=== PATIENT | female | born 2000 | race American Indian/Alaskan Native ===

== ENCOUNTER 2022-12-12 09:40 | Emergency (ER) | payer MEDICAID, SELFPAY ==
[2022-12-12 09:45] VITALS: BP 126/85; PULSE 53; RESP 17; TEMP 36.6; O2SAT 100
--- NOTE | 2022-12-12 09:59 | DI.RAD.S_ITS ---
PROCEDURE: XR CHEST 1V INDICATIONS: chest pain TECHNIQUE: One view of the chest was acquired. COMPARISON: None. FINDINGS: Surgical changes and devices: None. Lungs and pleura: Lungs are clear. No pleural effusions or pneumothorax. Mediastinum: Mediastinal contours appear normal. Heart size is normal. Bones and chest wall: No suspicious bony lesions. Overlying soft tissues appear unremarkable. IMPRESSION: No acute cardiopulmonary abnormalities or focal airspace disease. Dictated by: Fredo Jacinto M.D. on 12/12/2022 at 10:39 Approved by: Fredo Jacinto M.D. on 12/12/2022 at 10:40
[2022-12-12 10:06] VITALS: PULSE 57; RESP 33; O2SAT 100
[2022-12-12 10:06] LABS: INR 1.1 (0.9-1.3); Prothrombin Time 12.2 SECONDS (10.1-12.7)
[2022-12-12 10:07] VITALS: BP 133/99; PULSE 54; RESP 34; O2SAT 100
[2022-12-12 10:09] LABS: Add Manual Diff / Slide Review NO; Basophils Absolute Auto 0 /uL (0-100); Basophils Percent Auto 0.2 % (0-2); Eosinophils Absolute Auto 0 /uL (0-450); Eosinophils Percent Auto 0.1 % (2-4); Hemoglobin 13.5 g/dL (12.0-16.0); Lymphocytes Absolute Auto 900 /uL (1100-4500); Lymphocytes Percent Auto 7.2 % (25-40); Mean Corpuscular HGB Conc 33.6 % (30-36); Mean Corpuscular Hemoglobin 28.6 PG (26-34); Monocytes Absolute Auto 500 /uL (0-900); Neutrophils Absolute Auto 10700 /uL (1500-7000); Neutrophils Percent Auto 88.5 % (50-75); Platelet Count 422 X10^3/uL (150-400); Red Blood Cell Count 4.71 X10^6/uL (4.0-5.2); Red Cell Distribution Width 16.4 % (11.6-14.8); White Blood Cell Count 12.1 X10^3/uL (4.5-11.0)
[2022-12-12 10:10] LABS: Alanine Aminotransferase 19 IU/L (<35); Albumin 4.6 g/dL (3.5-5.0); Albumin Globulin Ratio 1.2 (1.0-2.8); Alkaline Phosphatase 72 U/L (38-126); Aspartate Aminotransferase 29 IU/L (14-36); BUN Creatinine Ratio 17.9 (6-22); Bilirubin Total 0.6 mg/dL (0.2-1.3); Blood Urea Nitrogen 10 mg/dL (7-17); Calcium 9.5 mg/dL (8.4-10.2); Carbon Dioxide 27 mmol/L (22-32); Chloride 104 mmol/L (98-107); Creatine Kinase 291 U/L (30-135); Estimated Glomerular Filt Rate > 60 mL/min (>60); Globulin 3.8 g/dL (1.7-4.1); Glucose 108 mg/dL (70-100); HEMOLYSIS < 15 (0-50); Lactate (Lactic Acid) 1.6 mmol/L (0.7-2.1); Potassium 3.8 mmol/L (3.4-5.1); Sodium 139 mmol/L (137-145); Total Protein 8.4 g/dL (6.3-8.2)
--- NOTE | 2022-12-12 10:11 | ED.SYNCOPE ---
HPI - Syncope General Chief Complaint: Syncope Stated Complaint: Syncope Time Seen by Provider: 12/12/22 09:42 Source: EMS Mode of arrival: EMS History of Present Illness HPI narrative: 22-year-old female with history of opiate use disorder presents by EMS from [facility] for syncopal episode. Patient last used fentanyl last night. She was in the lobby about to check in for treatment when she passed out. Patient states that she had not eaten anything all night long. Just prior to her episode her face and mouth went numb and her vision went blurry. Patient states that this has happened before when she has not had anything to eat for a long time. Patient states that currently she feels both ?hot and cold?. She is yawning and has piloerection. Related Data Home Medications Medication Instructions Recorded Confirmed No Known Home Medications 12/12/22 12/12/22 Allergies Allergy/AdvReac Type Severity Reaction Status Date / Time No Known Drug Allergies Allergy Verified 12/12/22 09:58 Review of Systems Review of Systems Narrative: CONSTITUTIONAL- Denies: fever, chills, HEENT- Denies: sore throat, nosebleed, vision changes RESPIRATORY- Denies: shortness of breath, cough, wheezing CARDIAC- Denies: chest pain, edema, orthopnea GI- Denies: abdominal pain, nausea, vomiting, constipation, diarrhea - Denies: frequency, dysuria, hematuria, flank pain MSK- Denies: extremity pain, extremity swelling, joint pain, joint swelling SKIN- Denies: rash, itching, burn, swelling NEUROLOGICAL-reports: Syncope Denies: headache, numbness, weakness, dizziness PSYCHIATRIC- Denies: anxiety, depression, suicidal ideation, homicidal ideation Patient History Social History Smoking Status: Unknown if ever smoked Smoking Status: Unknown if ever smoked Substance Use Type: opiates Exam Initial Vital Signs Initial Vital Signs: Vital Signs Temperature 98 F 12/12/22 09:45 Pulse Rate 53 L 12/12/22 09:45 Respiratory Rate 17 12/12/22 09:45 Blood Pressure 126/85 12/12/22 09:45 Pulse Oximetry 100 12/12/22 09:45 Oxygen Delivery Method Room Air 12/12/22 09:45 Const: Well-nourished, Well-developed, appears stated age Eyes: PERRL, EOMI, conjunctiva normal ENT: Atraumatic, dentition normal, mucous membranes moist Cardiac: regular rate, regular rhythm RESP: unlabored, clear bilaterally, no wheezing GI: Atraumatic, nontender, nondistended, no rebound, no guarding MSK: Atraumatic, full range of motion, pulses equal Skin: Warm, Dry, intact, no rashes Neuro: AO x3, CN II-XII grossly intact, moves all extremities Psych: affect normal, mood normal, not suicidal, not homicidal Course Course Course Narrative: syncope, sounds similar to vasovagal. Laboratory work is reviewed, unremarkable. EKG reviewed, computer says QTC elongation, however QT interval is less than half the RR distance. Patient is on rn cardiac rehab in ED room and QT measured at 415 milliseconds. In addition patient states that she has had several syncopal episodes similar to this in the past after not eating or drinking very much, and last night she did not eat or drink very much. Orders Ordered: ED Orders 12/12/22 09:45 Complete Blood Count AUTO DIFF Stat Comprehensive Metabolic Panel Stat Lactate (Lactic Acid) Stat Prothrombin Time INR Stat Troponin & CK Cardiac Panel Stat 12/12/22 09:59 XR chest 1V Stat EKG-12 Lead Stat 12/12/22 10:26 Urine Culture Stat Urine Drug Screen, Rapid Stat Urine Microscopic Stat Discontinued Medications Metronidazole (Metronidazole 500 Mg Tablet) 2,000 mg PO NOW ONE Stop: 12/12/22 11:10 Last Admin: 12/12/22 11:19 Dose: 2,000 mg Documented By: ROBERTO Reevaluation(s) Reevaluation #1: Laboratory work is reviewed, mild elevation in CK, no criteria for rhabdomyolysis. Urinalysis positive for Trichomonas. There are many bacteria seen, however patient denies urinary symptoms and so we will not treat for incidental bacteriuria at this time. Patient was advised of her Trichomonas results and I advised that her partners need to be tested and/or treated as well. Patient stable for discharge back to substance use facility. Vital Signs Vital signs: Vital Signs - 8 hr 12/12/22 09:45 12/12/22 10:06 12/12/22 10:07 Temperature 98 F Pulse Rate 53 L 57 L Respiratory Rate 17 33 H Blood Pressure 126/85 133/99 H Pulse Oximetry 100 100 Oxygen Delivery Method Room Air 12/12/22 10:07 12/12/22 10:30 12/12/22 10:30 Temperature Pulse Rate 54 L 65 Respiratory Rate 34 H 19 Blood Pressure 126/95 H Pulse Oximetry 100 100 Oxygen Delivery Method 12/12/22 11:00 Temperature Pulse Rate 90 Respiratory Rate Blood Pressure Pulse Oximetry 99 Oxygen Delivery Method MDM - Syncope Lab Data 12/12/22 09:45 12/12/22 09:45 Labs: Lab Results 12/12/22 12/12/22 12/12/22 Range/Units 09:45 09:45 09:45 WBC 12.1 H (4.5-11.0) X10^3/uL RBC 4.71 (4.0-5.2) X10^6/uL Hgb 13.5 (12.0-16.0) g/dL Hct 40.0 (36-46) % MCV 85.0 (80-100) fL MCH 28.6 (26-34) PG MCHC 33.6 (30-36) % RDW 16.4 H (11.6-14.8) % Plt Count 422 H (150-400) X10^3/uL Neut % (Auto) 88.5 H (50-75) % Lymph % (Auto) 7.2 L (25-40) % Levy % (Auto) 4.0 (3-14) % Eos % (Auto) 0.1 L (2-4) % Baso % (Auto) 0.2 (0-2) % Neut # (Auto) 06524 H (7455-8401) /uL Lymph # (Auto) 900 L (0043-3065) /uL Levy # (Auto) 500 (0-900) /uL Eos # (Auto) 0 (0-450) /uL Baso # (Auto) 0 (0-100) /uL PT 12.2 (10.1-12.7) SECONDS INR 1.1 (0.9-1.3) Sodium 139 (137-145) mmol/L Potassium 3.8 (3.4-5.1) mmol/L Chloride 104 (98-107) mmol/L Carbon Dioxide 27 (22-32) mmol/L BUN 10 (7-17) mg/dL Creatinine 0.56 (0.52-1.04) mg/dL Estimated GFR > 60 (>60) mL/min BUN/Creatinine Ratio 17.9 (6-22) Glucose 108 H (70-100) mg/dL Lactate (0.7-2.1) mmol/L Calcium 9.5 (8.4-10.2) mg/dL Total Bilirubin 0.6 (0.2-1.3) mg/dL AST 29 (14-36) IU/L ALT 19 (<35) IU/L Alkaline Phosphatase 72 (38-126) U/L Total Creatine Kinase 291 H (30-135) U/L Troponin I < 0.012 (0.01-0.034) ng/mL Total Protein 8.4 H (6.3-8.2) g/dL Albumin 4.6 (3.5-5.0) g/dL Globulin 3.8 (1.7-4.1) g/dL Albumin/Globulin Ratio 1.2 (1.0-2.8) Urine RBC (0-5/HPF) Urine WBC (0-5/HPF) Ur Squamous Epith Cells (0-5/HPF) Urine Bacteria (None) Urine Trichomonas (None Seen) Ur Culture Indicated? U Opiates 300ng/mL cut (Negative) Ur Oxycodone Screen (Negative) Urine Methadone Screen (Negative) Ur Barbiturates Screen (Negative) U Tricyclic Antidepress (Negative) Ur Phencyclidine Scrn (Negative) Ur Amphetamines Screen (Negative) U Methamphetamines Scrn (Negative) Ur MDMA Scrn (Ecstasy) (Negative) U Benzodiazepines Scrn (Negative) Urine Cocaine Screen (Negative) U Marijuana (THC) Screen (Negative) 12/12/22 12/12/22 12/12/22 Range/Units 09:45 10:26 10:26 WBC (4.5-11.0) X10^3/uL RBC (4.0-5.2) X10^6/uL Hgb (12.0-16.0) g/dL Hct (36-46) % MCV (80-100) fL MCH (26-34) PG MCHC (30-36) % RDW (11.6-14.8) % Plt Count (150-400) X10^3/uL Neut % (Auto) (50-75) % Lymph % (Auto) (25-40) % Levy % (Auto) (3-14) % Eos % (Auto) (2-4) % Baso % (Auto) (0-2) % Neut # (Auto) (7781-1007) /uL Lymph # (Auto) (4424-9880) /uL Levy # (Auto) (0-900) /uL Eos # (Auto) (0-450) /uL Baso # (Auto) (0-100) /uL PT (10.1-12.7) SECONDS INR (0.9-1.3) Sodium (137-145) mmol/L Potassium (3.4-5.1) mmol/L Chloride (98-107) mmol/L Carbon Dioxide (22-32) mmol/L BUN (7-17) mg/dL Creatinine (0.52-1.04) mg/dL Estimated GFR (>60) mL/min BUN/Creatinine Ratio (6-22) Glucose (70-100) mg/dL Lactate 1.6 (0.7-2.1) mmol/L Calcium (8.4-10.2) mg/dL Total Bilirubin (0.2-1.3) mg/dL AST (14-36) IU/L ALT (<35) IU/L Alkaline Phosphatase (38-126) U/L Total Creatine Kinase (30-135) U/L Troponin I (0.01-0.034) ng/mL Total Protein (6.3-8.2) g/dL Albumin (3.5-5.0) g/dL Globulin (1.7-4.1) g/dL Albumin/Globulin Ratio (1.0-2.8) Urine RBC 1-5/hpf (0-5/HPF) Urine WBC 5-10/hpf H (0-5/HPF) Ur Squamous Epith Cells 1-5 /hpf (0-5/HPF) Urine Bacteria Many (>30) H (None) Urine Trichomonas 1-5/hpf H (None Seen) Ur Culture Indicated? Specimen cultured U Opiates 300ng/mL cut Negative (Negative) Ur Oxycodone Screen Negative (Negative) Urine Methadone Screen Negative (Negative) Ur Barbiturates Screen Negative (Negative) U Tricyclic Antidepress Negative (Negative) Ur Phencyclidine Scrn Negative (Negative) Ur Amphetamines Screen Negative (Negative) U Methamphetamines Scrn Positive H (Negative) Ur MDMA Scrn (Ecstasy) Negative (Negative) U Benzodiazepines Scrn Negative (Negative) Urine Cocaine Screen Negative (Negative) U Marijuana (THC) Screen Positive H (Negative) Point of Care Testing Test Results Negative Glucose POC 119 Urine Dip Bedside Urine Glucose Negative Bedside Urine Bilirubin - Negative Bedside Urine Ketone - Negative Urine Specific [place] 1.005 Bedside Urine Occult Blood +/- Bedside Urine pH 6.5 Bedside Urine Protein - Negative Bedside Urine Urobilinogen - Negative Bedside Urine Nitrite + Positive Bedside Urine Leukocytes +++ 500 Esterase ECG Data Interpretation: Regular rate, regular rhythm, no ST T wave changes. Discharge Plan Departure Patient Disposition: Home Clinical Impression: Vasovagal syncope, Opiate withdrawal, infection, trichomonal Instructions: DI for Syncope in Adults (Fainting) Activity Restrictions/Additional Instructions: YOUR URINE WAS POSITIVE FOR TRICHOMONAS. YOU HAVE BEEN GIVEN THE ANTIBIOTIC TREATMENT IN THE EMERGENCY DEPARTMENT, HOWEVER ALL OF YOUR SEXUAL PARTNERS SHOULD BE TESTED AND/OR TREATED FOR THIS CONDITION. Prescriptions: No Action No Known Home Medications Stand Alone Forms: Patient Portal/API
[2022-12-12 10:22] LABS: Troponin I < 0.012 ng/mL (0.01-0.034)
[2022-12-12 10:30] VITALS: BP 126/95; PULSE 65; RESP 19; O2SAT 100
[2022-12-12 10:54] LABS: UR Morphine/Opiate cutoff 300 Negative (Negative); Ur Creatinine Normal (Normal); Ur Specific Gravity Normal (Normal); Urine Cocaine Negative (Negative); Urine Tetrahydrocannabinol Positive (Negative); Urine pH Normal (Normal)
[2022-12-12 10:55] LABS: Urine Amphetamines Negative (Negative); Urine Barbiturates Negative (Negative); Urine Benzodiazepines Negative (Negative); Urine MDMA Negative (Negative); Urine Methadone Negative (Negative); Urine Methamphetamines Positive (Negative); Urine Oxycodone Negative (Negative); Urine Phencyclidine Negative (Negative); Urine Tricyclic Antidepressant Negative (Negative)
[2022-12-12 11:00] VITALS: PULSE 90; O2SAT 99
[2022-12-12 11:05] LABS: Bacteria Urine Many (>30); RBC Urine 1-5/HPF (0-5/HPF); Squamous Epithelial Cell Urine 1-5 /HPF (0-5/HPF); WBC Urine 5-10/HPF (0-5/HPF)
[2022-12-12 11:06] LABS: Culture Indicated Urine Specimen Cultured; Trichomonas Urine 1-5/HPF (None Seen)
[2022-12-12] MEDS: metroNIDAZOLE 500 MG TABLET 2000 MG PO (11:19)
--- NOTE | 2022-12-12 11:24 | PC.NURSE ---
Addendum entered by Betty Carranza R.N. 12/12/22 11:25: 0945 Patient alert and shaking in bed, states she is hot but cold. Given blankets. Answers questions appropriately. Requesting her methadone for pain. Admits to using fentanyl last night. Original Note: Patient alert and shaking in bed, states she is hot but cold. Given blankets. Answers questions appropriately. Requesting her methadone for pain. Admits to using fentanyl last night.
--- NOTE | 2022-12-12 11:27 | PC.NURSE ---
Sitting up in bed eating sandwich and drinking water. Report given to Alen MUNGUIA at [facility]. [facility] coming to fruit or nut picker patient and return her to their clinic.
--- NOTE | 2022-12-12 11:57 | PC.NURSE ---
1145 MOm at bedside. Patient DC'd with mom and with [employer] transportation to take her back to the clinic.
--- NOTE | 2022-12-12 12:00 | PC.NURSE ---
Patient's ID found in bed, I called [facility] and informed them that it is at the [facility] for them to come back and get it.
== END 2022-12-12 11:50 | disposition home or self-care (01) ==
PROVIDERS: Emergency Provider Emergency Medicine
DX: R55 Syncope and collapse (principal); F11.93 Opioid use, unspecified with withdrawal; A59.00 Urogenital trichomoniasis, unspecified; R07.9 Chest pain, unspecified
CPT/HCPCS: 36415; 71045; 80053; 80305; 81003; 81015; 81025; 82550; 83605; 84484; 85025; 85610; 87077; 87086; 87186; 93005; 99284